=== PATIENT | male | born 1995 | race Asian ===

== ENCOUNTER 2016-11-23 02:41 | Emergency (ER) | payer OTHER ==
[~2016-11-23] VITALS: Ht 170.2 cm; Wt 65.8 kg
[~2016-11-23 02:41] MED LIST: Divalproex Sodium PO; PARO20TA51 PO
[2016-11-23 03:17] VITALS: BP 113/75
--- NOTE | 2016-11-23 03:26 | NUR ---
pt left without aci.
--- NOTE | 2016-11-23 03:36 | NUR ---
CASE REPORTED TO [employer] APPRENTICE 231.
== END 2016-11-23 03:40 | disposition home or self-care (01) ==
LOC: ER 02:46
DX: F99 Mental disorder, not otherwise specified (principal); G40.909 Epilepsy, unspecified, not intractable, without status epilepticus; Y08.89XA Assault by other specified means, initial encounter; Y93.89 Activity, other specified; Y92.89 Other specified places as the place of occurrence of the external cause; Y99.9 Unspecified external cause status
CPT/HCPCS: A4606; Z7502; Z7610

== ENCOUNTER 2017-02-12 22:41 | Emergency (ER) | payer OTHER ==
[~2017-02-12] VITALS: Ht 165.1 cm; Wt 56.7 kg
[2017-02-12 22:49] VITALS: BP 102/71
== END 2017-02-13 00:10 | disposition home or self-care (01) ==
LOC: ER 22:41
DX: G89.29 Other chronic pain (principal); F41.9 Anxiety disorder, unspecified; G40.909 Epilepsy, unspecified, not intractable, without status epilepticus
CPT/HCPCS: 93005; 99284; A4606; Z7610

== ENCOUNTER 2017-08-01 14:17 | Emergency (ER) | payer OTHER ==
[~2017-08-01] VITALS: Ht 172.7 cm; Wt 49.9 kg
[~2017-08-01 14:17] MED LIST changes: +PARO-64 PO; -PARO20TA51 PO
--- NOTE | 2017-08-01 14:20 | NUR ---
pt sanjiv from home. here for witnessed seizure. pt states missed a dose of his seizure meds. pt is [employer]. no oral trauma. stable vitas. awaiting md estrella.
--- NOTE | 2017-08-01 14:41 | NUR ---
walter crum at bedside for eval.
[2017-08-01 14:53] LABS: BASOPHILS # (AUTO) 0.1 /CMM (0.0-0.2); BASOPHILS % (AUTO) 0.8 % (0.0-2.0); EOSINOPHILS # (AUTO) 0.2 /CMM (0.0-0.7); EOSINOPHILS % (AUTO) 2.5 % (0.0-6.0); HEMATOCRIT 46 % (39-51); HEMOGLOBIN 14.7 g/dL (13.5-17.5); LYMPHOCYTES # (AUTO) 1.8 /CMM (0.8-4.8); MEAN CORPUSCULAR HEMOGLOBIN 21 PG (26.0-33.0); MEAN CORPUSCULAR HGB CONC 32 g/dl (31.0-36.0); MEAN CORPUSCULAR VOLUME 66 fL (80-96); MONOCYTES # (AUTO) 0.4 /CMM (0.1-1.30); MONOCYTES % (AUTO) 5.3 % (2.0-12.0); NEUTROPHILS # (AUTO) 5.6 /CMM (1.8-8.9); NEUTROPHILS % (AUTO) 69.4 % (43.0-81.0); PLATELET COUNT (AUTO) 211 /CMM (150-450); RDW COEFFICIENT OF VARIATION 14.1 (11.5-15.0); RED BLOOD CELL COUNT(AUTO) 6.93 MIL/uL (4.5-6.0); WHITE BLOOD COUNT (AUTO) 8.1 K/uL (4.3-11.0)
[2017-08-01 15:00] LABS: CALCIUM, SERUM 9.2 mg/dL (8.5-10.1); CREATININE 1.1 mg/dL (0.6-1.3)
[2017-08-01] MEDS ORDERED: clonazePAM 1 MG TABLET PO ONE (15:00)
[2017-08-01 15:06] LABS: ALBUMIN 4.5 g/dL (3.4-5.0); BILIRUBIN,TOTAL 0.5 mg/dL (0.2-1.0); TOTAL PROTEIN, SERUM 7.8 g/dL (6.4-8.2)
[2017-08-01] MEDS ORDERED: clonazePAM 1 MG TABLET ONE (15:26)
--- NOTE | 2017-08-01 16:11 | NUR ---
Patient discharged to home in stable condition. Written and verbal after care instructions given. Patient verbalizes understanding of instruction.
[2017-08-01 16:12] VITALS: BP 112/64
== END 2017-08-01 16:13 | disposition home or self-care (01) ==
LOC: ER 14:23
DX: G40.909 Epilepsy, unspecified, not intractable, without status epilepticus (principal); F41.9 Anxiety disorder, unspecified
CPT/HCPCS: 36415; 80053-TC; 85025-TC; A4606; Z7610

== ENCOUNTER 2018-10-06 03:22 | Emergency (ER) | payer MEDICAID, OTHER ==
[~2018-10-06] VITALS: Ht 177.8 cm; Wt 7.3 kg
[2018-10-06] MEDS ORDERED: IV NS 0.9% 1,000 ML BAG IV ONE (03:30)
--- NOTE | 2018-10-06 03:45 | NUR ---
PT BIB FRIENDS. C/O "I THOUGHT I WAS GOING TO HAVE A HEART ATTACK" -SOB -N/V -ACUTE DISTRESS.
[2018-10-06 04:02] LABS: BASOPHILS # (AUTO) 0.1 /CMM (0.0-0.2); BASOPHILS % (AUTO) 0.6 % (0.0-2.0); HEMATOCRIT 48 % (39-51); HEMOGLOBIN 14.9 g/dL (13.5-17.5); LYMPHOCYTES # (AUTO) 3.9 /CMM (0.8-4.8); LYMPHOCYTES % (AUTO) 29.4 % (20.0-44.0); MEAN CORPUSCULAR HGB CONC 31 g/dl (31.0-36.0); MEAN CORPUSCULAR VOLUME 67 fL (80-96); MONOCYTES # (AUTO) 0.5 /CMM (0.1-1.30); NEUTROPHILS # (AUTO) 8.4 /CMM (1.8-8.9); PLATELET COUNT (AUTO) 254 /CMM (150-450); RED BLOOD CELL COUNT(AUTO) 7.15 MIL/uL (4.5-6.0); WHITE BLOOD COUNT (AUTO) 13.3 K/uL (4.3-11.0)
[2018-10-06 04:12] LABS: ALANINE AMINOTRANSFERASE 27 U/L (12-78); ALBUMIN 4.5 g/dL (3.4-5.0); ALCOHOL, BLOOD 57 mg/dL (0-0); ALKALINE PHOSPHATASE 81 U/L (46-116); ASPARTATE AMINOTRANSFERASE 27 U/L (15-37); BILIRUBIN,DIRECT 0.1 mg/dL (0.0-0.2); BILIRUBIN,TOTAL 0.5 mg/dL (0.2-1.0); CALCIUM, SERUM 9.5 mg/dL (8.5-10.1); CARBON DIOXIDE 22 mmol/L (21-32); CHLORIDE 103 mmol/L (98-107); CREATININE 0.9 mg/dL (0.6-1.3); GLUCOSE 94 mg/dL (74-106); POTASSIUM 3.7 mmol/L (3.5-5.1); SODIUM SERUM 142 mmol/L (136-145); TOTAL PROTEIN, SERUM 7.7 g/dL (6.4-8.2); UREA NITROGEN, BLOOD 11 mg/dL (7-18)
[2018-10-06 04:28] LABS: VALPROIC ACID 1 ug/mL (50-100)
[2018-10-06 05:34] VITALS: BP 106/77
[2018-10-06 05:35] LABS: PHENYTOIN (DILANTIN) < 0.5 ug/ml (10.0-20.0)
== END 2018-10-06 05:35 | disposition home or self-care (01) ==
LOC: ER 03:26
DX: F41.9 Anxiety disorder, unspecified (principal); F19.10 Other psychoactive substance abuse, uncomplicated; R11.10 Vomiting, unspecified; G40.909 Epilepsy, unspecified, not intractable, without status epilepticus; I21.9 Acute myocardial infarction, unspecified; R41.82 Altered mental status, unspecified; R00.0 Tachycardia, unspecified; F15.10 Other stimulant abuse, uncomplicated
CPT/HCPCS: 36415; 70450; 71045; 80048; 80076; 80164; 80185; 80305; 80307; 85025; 93005; 96360; 99284; A4606; J7030; G0480

== ENCOUNTER 2020-11-14 20:46 | Emergency (ER) | payer MEDICAID, OTHER ==
[~2020-11-14] VITALS: Ht 175.3 cm; Wt 52.2 kg
--- NOTE | 2020-11-14 20:50 | NUR ---
bibs for c/o bilateral eye burning and dizziness x 1 day, no sob,. pt was placed in bed 3 er. on monitor . VSS, will cont to monitor
[2020-11-14 22:42] LABS: BASOPHILS # (AUTO) 0.1 /CMM (0.0-0.2); BASOPHILS % (AUTO) 0.9 % (0.0-2.0); EOSINOPHILS % (AUTO) 1.8 % (0.0-6.0); HEMATOCRIT 42 % (39-51); HEMOGLOBIN 13.4 g/dL (13.5-17.5); LYMPHOCYTES # (AUTO) 2.2 /CMM (0.8-4.8); LYMPHOCYTES % (AUTO) 28.7 % (20.0-44.0); MEAN CORPUSCULAR HGB CONC 32 g/dl (31.0-36.0); MEAN CORPUSCULAR VOLUME 65 fL (80-96); MONOCYTES # (AUTO) 0.7 /CMM (0.1-1.30); MONOCYTES % (AUTO) 9.2 % (2.0-12.0); NEUTROPHILS # (AUTO) 4.5 /CMM (1.8-8.9); NEUTROPHILS % (AUTO) 59.4 % (43.0-81.0); PLATELET COUNT (AUTO) 222 /CMM (150-450); RED BLOOD CELL COUNT(AUTO) 6.45 MIL/uL (4.5-6.0); WHITE BLOOD COUNT (AUTO) 7.6 K/uL (4.3-11.0)
[2020-11-14 22:51] LABS: CALCIUM, SERUM 8.5 mg/dL (8.5-10.1); CREATININE 0.9 mg/dL (0.6-1.3); POTASSIUM 4.3 mmol/L (3.5-5.1)
--- NOTE | 2020-11-14 23:18 | NUR ---
PT STATED "I'M VERY HUNGRY AND I WANNA LEAVE". ASKED PT TO WAIT AND SPEAK TO THE DR REGARDING HIS BLOOD TEST RESULT BUT HE REFUSED. Patient does not wish to proceed with medical care recommended by Dr. GÓMEZ. Patient given information related to possible complications, up to and including , which could occur as a result of leaving the hospital at this time. Patient verbalizes understanding of risks involved due to leaving against medical advice. Patient has signed AMA form. Dr. Gómez made aware .
[2020-11-14 23:21] VITALS: BP 118/75
[2020-11-14 23:24] LABS: EOSINOPHILS % (MANUAL) 2 % (0-4); LYMPHOCYTES % (MANUAL) 26 % (16-48); MONOCYTES % (MANUAL) 10 % (0-11.0); NEUTROPHILS % (MANUAL) 62 (42-76)
== END 2020-11-14 23:22 | disposition left against medical advice (07) ==
LOC: ER 20:48
DX: R42 Dizziness and giddiness (principal); R20.8 Other disturbances of skin sensation; F41.9 Anxiety disorder, unspecified; G40.909 Epilepsy, unspecified, not intractable, without status epilepticus; R94.31 Abnormal electrocardiogram [ECG] [EKG]; Z79.899 Other long term (current) drug therapy
CPT/HCPCS: 36415; 80048-TC; 80177; 85025-TC